=== PATIENT | male | born 1990 | race American Indian/Alaskan Native ===

== ENCOUNTER 2016-12-15 10:52 | Emergency (ER) | payer SELFPAY ==
[2016-12-15 11:01] VITALS: BP 102/57
--- NOTE | 2016-12-15 11:26 | Emergency Department Report ---
Upper Extremity - HPI Chief Complaint: Skin/Abscess/Foreign Body Stated Complaint: INSECT BITE Upper Extremity: Right Elbow (redness and pain from insect bite.) Occurred When: Today Mechanism: Other (patient reports that he thinks the insect bite because his HOLE TO Center.) Symptoms: Yes Pain with Movement, Yes Bruising/Ecchymosis, No Deformity, No Limited Range of Movement, No Numbness, No Weakness, No Laceration or Abrasion Other History: Patient here reported that he thinks he's been bitten by insect but unsure what kind of insect. He reports right elbow pain with movement of elbow with some redness. He said he has open into Center without any drainage. Denies any limitation in movement and pain only when he moves. She denies pain at rest. Denies any fever or chills denies any radiation of pain. Denies any numbness or tingling in fingers. ED Review of Systems ROS: Stated complaint: INSECT BITE Other details as noted in HPI Comment: All other systems reviewed and negative Constitutional: denies: chills, fever Respiratory: no symptoms reported Cardiovascular: denies: chest pain, palpitations Gastrointestinal: denies: abdominal pain, nausea, vomiting Musculoskeletal: joint swelling, arthralgia Skin: other (erythema with possible insect bite to right elbow) Neurological: denies: headache, weakness, numbness, paresthesias, confusion, abnormal gait, vertigo ED Past Medical Hx - Past Medical History Previous Medical History?: No - Surgical History Past Surgical History?: No - Family History Family history: no significant - Social History Smoking Status: Former Smoker Substance Use Type: Alcohol - Medications Home Medications: Home Medications Medication Instructions Recorded Confirmed Last Taken Type Cephalexin [Keflex] 500 mg PO Q8HR #21 cap 12/15/16 Unknown Rx Upper Extremity Exam - Exam General: Vital signs noted. No distress. Alert and acting appropriately. This is a 26-year-old male well-nourished well-developed in no acute distress. Head and Torso: No HEENT Abnormality, No Neck Tenderness, No Chest/Lungs Abnormality, No Abdominal Tenderness, No Back Tenderness Shoulder Exam: Yes Normal Range of Motion in Shoulder, No Shoulder Tenderness, No Clavicle Tenderness, No Shoulder Deformity, No AC Joint Tenderness Arm Exam: No Arm/Humerus Tenderness, No Arm Deformity Elbow: Yes Elbow Tenderness (mild erythema to left elbow with minimal swelling. No fluctuance. Pinpoint opening to Center of erythema areas fla no), Yes Normal Range of Motion in Elbow, No Elbow Deformity Forearm: No Forearm Tenderness, No Forearm Deformity, No Pain with Pronation, No Pain with Supination Wrist: Yes Normal ROM in Wrist, No Wrist Tenderness, No Wrist Deformity, No Snuffbox Tenderness, No Pain with Axial Thumb Compression Hand: Yes Normal ROM in Digit(s), No Hand Tenderness, No Hand Deformity, No Digit Tenderness, No Digit(s) Deformity, No Tendon Dysfunction CMS Exam: Yes Broken Skin (small opening into the center of erythema to right elbow), Yes Normal Distal Pulses, Yes Normal Capillary Refill, Yes Normal Distal Sensation ED Course Vital Signs 12/15/16 10:59 Temperature 98.1 F Pulse Rate 58 L Respiratory 16 Rate Blood Pressure 102/57 O2 Sat by Pulse 100 Oximetry - Reevaluation(s) Reevaluation #1: 12/15/16 13:07 Patient stable throughout ED stay and tetanus vaccine is up-to-date. ED Medical Decision Making - Radiology Data Radiology results: report reviewed X-ray reveals normal right elbow - Medical Decision Making ED course: Patient here status post insect bite with minimal cellulitis to his right elbow. XRAY revealed normal right elbow. There is no drainage at the site. I discussed with patient his diagnosis and treatment plan as he is in agreement. His tetanus vaccine is up-to-date. He did not want anything for pain. Patient discharged home to follow-up with [facility] in 2-3 days as he does not have a primary care physician. Critical care attestation.: If time is entered above; I have spent that time in minutes in the direct care of this critically ill patient, excluding procedure time. ED Disposition Clinical Impression: Cellulitis of left elbow Insect bite Qualifiers: Encounter type: initial encounter Qualified Code(s): W57.XXXA - Bitten or stung by nonvenomous insect and other nonvenomous arthropods, initial encounter Disposition: DISCHARGED TO HOME OR SELFCARE Is pt being admited?: No Does the pt Need Aspirin: No Condition: Stable Instructions: Cellulitis (ED), Insect Bite or Sting (ED) Additional Instructions: affected area clean and dry. Take antibiotic as prescribed She noticed area with increased redness, drainage, develop fever and increased heart rate please return to the emergency room. Prescriptions: Cephalexin [Keflex] 500 mg PO Q8HR #21 cap Referrals: PRIMARY CARE, [Primary Care Provider] - 2-3 Days [facility] [Outside] - 2-3 Days Forms: Accompanied Note, Work/School Release Form(ED)
--- NOTE | 2016-12-15 12:15 | XRay Report ---
RIGHT ELBOW, 3 views: History: Right elbow pain and swelling. The bony architecture is intact without evidence of fracture or dislocation. No significant soft tissue abnormality is seen. IMPRESSION: Unremarkable right elbow.
== END 2016-12-15 13:10 | disposition home or self-care (01) ==
LOC: ED 10:52
DX: S50.362A Insect bite (nonvenomous) of left elbow, initial encounter (principal); L03.114 Cellulitis of left upper limb; Z87.891 Personal history of nicotine dependence; W57.XXXA Bitten or stung by nonvenomous insect and other nonvenomous arthropods, initial encounter; Y93.89 Activity, other specified; Y99.8 Other external cause status; Y92.89 Other specified places as the place of occurrence of the external cause
CPT/HCPCS: 99283

== ENCOUNTER 2020-08-17 11:46 | Emergency (ER) | payer SELFPAY ==
[2020-08-17 12:54] VITALS: BP 109/69
--- NOTE | 2020-08-17 13:06 | Emergency Department Report ---
Chief Complaint: Urogenital-Male Stated Complaint: POSS UTI - HPI History of Present Illness: 30-year-old -[place] male presents to the emergency room stating he thinks he has a urinary tract infection. Patient denies any pain. Patient is afebrile in triage. Vital signs are all stable - Exam Vital Signs: Vital Signs 08/17/20 12:53 Temperature 97.8 F Pulse Rate 76 Respiratory 16 Rate Blood Pressure 109/69 [Right] O2 Sat by Pulse 100 Oximetry Physical Exam: Alert and oriented x3 no acute distress nontoxic in appearance Patient is ambulatory without difficulties. MSE screening note: Focused history and physical exam performed. Due to findings the following was ordered: 30-year-old -[place] male presents to the emergency room stating he thinks he has a urinary tract infection. Patient denies any pain. Patient is afebrile in triage. Vital signs are all stable [place] [facility] [place]-07 MED SCREENING EXAM-LEFT Is pt being admited?: No Does the pt Need Aspirin: No Condition: Stable Instructions: Safe Sex Additional Instructions: Follow up at the health department. Referrals: PRIMARY CARE [Primary Care Provider] - 3-5 Days [facility] [Outside] - 3-5 Days
== END 2020-08-17 13:00 | disposition left against medical advice (07) ==
LOC: ED 11:46
DX: R10.2 Pelvic and perineal pain (principal); Z53.21 Procedure and treatment not carried out due to patient leaving prior to being seen by health care provider